=== PATIENT | male | born 1990 | race Caucasian/White ===

== ENCOUNTER 2020-10-14 07:46 | Emergency (ER) | payer SELFPAY ==
--- NOTE | 2020-10-14 08:35 | CR ---
PROCEDURE INFORMATION: Exam: XR Left Knee Exam date and time: 10/14/2020 8:12 AM Age: 30 years old Clinical indication: Pain; Knee; Left; Additional info: Left knee pain TECHNIQUE: Imaging protocol: XR Left knee. Views: 3 views. COMPARISON: No relevant prior studies available. FINDINGS: Bones/joints: There is no fracture or dislocation. There is no significant narrowing of the joint compartments. No significant osteophytes are appreciated. Soft tissues: Normal. IMPRESSION: No acute findings
--- NOTE | 2020-10-14 08:39 | EDM.PDOC ---
ED HPI GENERAL MEDICAL PROBLEM - General Chief Complaint: Lower Extremity Injury/Pain Stated Complaint: INJURY TO LEFT KNEE Time Seen by Provider: 10/14/20 08:25 Source of Information: Reports: Patient History Limitations: Reports: No Limitations - History of Present Illness INITIAL COMMENTS - FREE TEXT/NARRATIVE: This 30 yo male patient reports to the ED due to pain in his left knee. The patient reports he was at [employer] doing physical testing when he started to have increased pain in his knees with his left knee being much worse. The patient reports he had similar symptoms about 2 months ago in his left knee and was advised that he had some inflammation. The patient reports he did not follow-up with his primary care provider after that visit. The patient also reports he has had intermittent pain in his left shoulder with no explanation. The patient reports he normally uses [facility] for symptom relief. Onset: Today Duration: Minutes: Location: Reports: Lower Extremity, Left (knee) Quality: Reports: Ache, Dull Severity: Moderate Improves with: Reports: None Worsens with: Reports: None Context: Reports: Activity Associated Symptoms: Reports: No Other Symptoms Left Knee Pain Score (Numeric/FACES): 5 - Related Data Allergies Allergy/AdvReac Type Severity Reaction Status Date / Time No Known Allergies Allergy Verified 10/14/20 08:02 Home Meds: Home Meds . [No Known Home Meds] 10/14/20 [History] Past Medical History HEENT History: Reports: None Cardiovascular History: Reports: None Respiratory History: Reports: None Gastrointestinal History: Reports: None Genitourinary History: Reports: None Musculoskeletal History: Reports: None Neurological History: Reports: None Psychiatric History: Reports: None Endocrine/Metabolic History: Reports: None Hematologic History: Reports: None Immunologic History: Reports: None Oncologic (Cancer) History: Reports: None Dermatologic History: Reports: None - Infectious Disease History Infectious Disease History: Reports: None - Past Surgical History Head Surgeries/Procedures: Reports: None Social & Family History - Tobacco Use Tobacco Use Status *Q: Current Every Day Tobacco User Years of Tobacco use: 11 Packs/Tins Daily: 0.5 Second Hand Smoke Exposure: No - Caffeine Use Caffeine Use: Reports: None - Recreational Drug Use Recreational Drug Use: No Review of Systems - Review of Systems Review Of Systems: Comprehensive ROS is negative, except as noted in HPI. ED EXAM, GENERAL - Physical Exam Exam: See Below Exam Limited By: No Limitations General Appearance: Alert, WD/WN, Moderate Distress Eye Exam: Bilateral Eye: EOMI, Normal Inspection, PERRL Ears: Normal External Exam, Normal Canal, Hearing Grossly Normal, Normal TMs Nose: Normal Inspection, Normal Mucosa, No Blood Throat/Mouth: Normal Inspection, Normal Lips, Normal Teeth, Normal Gums, Normal Oropharynx, Normal Voice, No Airway Compromise Head: Atraumatic, Normocephalic Neck: Normal Inspection, Supple, Non-Tender, Full Range of Motion Respiratory/Chest: No Respiratory Distress, Lungs Clear, Normal Breath Sounds, No Accessory Muscle Use, Chest Non-Tender Cardiovascular: Normal Peripheral Pulses, Regular Rate, Rhythm, No Edema, No Gallop, No JVD, No Murmur, No Rub GI/Abdominal: Normal Bowel Sounds, Soft, Non-Tender, No Organomegaly, No Distention, No Abnormal Bruit, No Mass (Male) Exam: Deferred Rectal (Males) Exam: Deferred Back Exam: Normal Inspection, Full Range of Motion, NT Extremities: Leg Pain (left knee tenderness throughout the joint space and with movement of the knee.) Neurological: Alert, Oriented, CN II-XII Intact, Normal Cognition, Normal Gait, Normal Reflexes, No Motor/Sensory Deficits Psychiatric: Normal Affect, Normal Mood Skin Exam: Warm, Dry, Intact, Normal Color, No Rash Lymphatic: No Adenopathy Course - Vital Signs Last Recorded V/S: Last Vital Signs Temp 36.6 C 10/14/20 07:58 Pulse 103 H 10/14/20 07:58 Resp 16 10/14/20 07:58 BP 112/75 10/14/20 07:58 Pulse Ox 99 10/14/20 07:58 - Orders/Labs/Meds Orders: Active Orders 24 hr Category Date Time Status Knee 3V Lt [CR] Urgent Exams 10/14/20 08:11 Ordered Departure - Departure Time of Disposition: 08:50 Disposition: Home, Self-Care 01 Condition: Fair Clinical Impression: Strain of left knee Qualifiers: Encounter type: initial encounter Qualified Code(s): S86.912A - Strain of unspecified muscle(s) and tendon(s) at lower leg level, left leg, initial encounter - Discharge Information *PRESCRIPTION DRUG MONITORING PROGRAM REVIEWED*: Not Applicable *COPY OF PRESCRIPTION DRUG MONITORING REPORT IN PATIENT GEMA: Not Applicable Instructions: Knee Sprain, Adult, [id number] Care Plan Goals: The patient was advised of the examination and x-ray results during the visit. The patient was given a dose of ibuprofen and placed in a knee immobilizer with a set of crutches while in the ED. The patient was encouraged to rest, ice, compress and elevate the extremity. The patient may taken Tylenol and ibuprofen as directed for temporary symptom relief. The patient should follow-up with his primary care facility for continued evaluation and management. If the patient has any additional symptoms or concerns, the patient should either return to the emergency department or visit his primary care facility. Sepsis Event Note (ED) - Evaluation Sepsis Screening Result: No Definite Risk - Focused Exam Vital Signs: Vital Signs Temp Pulse Resp BP Pulse Ox 10/14/20 07:58 36.6 C 103 H 16 112/75 99 - My Orders Last 24 Hours: My Active Orders 10/14/20 08:11 Knee 3V Lt [CR] Urgent - Assessment/Plan Last 24 Hours: My Active Orders 10/14/20 08:11 Knee 3V Lt [CR] Urgent
[2020-10-14] MEDS ORDERED: Ibuprofen 600 MG Tab PO ONE (08:44)
== END 2020-10-14 09:07 | disposition home or self-care (01) ==
LOC: DL.ED 07:46
DX: S86.912A Strain of unspecified muscle(s) and tendon(s) at lower leg level, left leg, initial encounter (principal); Z72.0 Tobacco use; X50.9XXA Other and unspecified overexertion or strenuous movements or postures, initial encounter
CPT/HCPCS: 73562; 99282; 99283; A9270